=== PATIENT | male | born 1990 | race African-American/Black ===

== ENCOUNTER 2022-08-14 03:01 | Emergency (ER) | payer SELFPAY ==
[2022-08-14 03:26] LABS: APPEARANCE,URINE CLEAR; BILIRUBIN,URINE NEGATIVE (NEGATIVE); COLOR,URINE YELLOW; GLUCOSE,URINE NEGATIVE (NEGATIVE); KETONES,URINE NEGATIVE (NEGATIVE); LEUKOCYTE ESTERASE,URINE NEGATIVE (NEGATIVE); NITRITE,URINE NEGATIVE (NEGATIVE); OCCULT BLOOD,URINE NEGATIVE (NEGATIVE); PROTEIN,URINE NEGATIVE (NEGATIVE); UROBILINOGEN,URINE 0.2 EU/dL (<2.0)
[2022-08-14 04:13] VITALS: BP 147/91; PULSE 75
== END 2022-08-14 04:13 | disposition home or self-care (01) ==
LOC: MW.ED 03:01
DX: R10.11 Right upper quadrant pain (principal)
CPT/HCPCS: 81003; 99283; 99284

== ENCOUNTER 2024-04-03 14:48 | Emergency (ER) | payer SELFPAY ==
[2024-04-03 14:59] VITALS: BP 147/76; PULSE 65
[2024-04-03] MEDS: Lidocaine 2% Viscous Solution 15 ML UD PO ONE (15:25)
== END 2024-04-03 15:54 | disposition home or self-care (01) ==
LOC: MW.ED 14:48
DX: J02.9 Acute pharyngitis, unspecified (principal); Z75.8 Other problems related to medical facilities and other health care
CPT/HCPCS: 87428; 87651; 99283; A9270